=== PATIENT | female | born 1930 | race African-American/Black ===

== ENCOUNTER 2016-06-04 05:00 | Emergency (ER) | payer MEDICARE, MEDICAID ==
[~2016-06-04] VITALS: Ht 149.9 cm; Wt 61.2 kg
[~2016-06-04 05:00] MED LIST: HYDR-1421
[2016-06-04 06:05] LABS: Basophils # (auto) 0.1 uL; Basophils % (auto) 0.5 % (0.0-2.0); Eosinophils # (auto) 0.2 uL; Hematocrit 40.8 % (36.0-46.0); Hemoglobin 12.8 g/dL (12.2-16.2); Lymphocytes # (auto) 2.8 uL; Lymphocytes % (auto) 28.8 % (10.0-50.0); Mean Corpuscular Hemoglobin 30.5 pg (28.0-32.0); Mean Corpuscular Hgb Conc. 31.4 g/dL (32.0-36.0); Mean Corpuscular Volume 97.4 fL (80.0-100.0); Mean Platelet Volume 9.4 fL (7.4-10.4); Monocytes # (auto) 0.7 uL; Neutrophils % (auto) 61.7 % (37.0-80.0); Platelet Count (auto) 277 10^3/uL (140-450); Red Cell Distribution Width 14.6 % (11.6-16.0); White Blood Cell 9.7 10^3/uL (4.4-10.8)
[2016-06-04 06:15] LABS: INR 1.01 (0.9-1.15); Partial Thromboplastin Time 26.4 sec (22.64-33.71); Prothrombin Time 10.4 sec (9.37-12.3)
[2016-06-04 06:38] LABS: Chloride 110 mmol/L (98-107); Potassium 3.8 mmol/L (3.5-5.1); Sodium 142 mmol/L (136-145)
[2016-06-04 06:42] LABS: Albumin 3.4 g/dL (3.4-5.0); Anion Gap 9 (5-15); Aspartate Aminotransferase 32 U/L (15-37); BUN/Creatinine Ratio 15.8; Blood Urea Nitrogen 12 mg/dL (7-18); Calcium 8.9 mg/dL (8.5-10.1); Carbon Dioxide 23 mmol/L (21-32); GFR African American 93 mL/min; GFR Non-African American 77 mL/min; Glucose 104 mg/dL (74-106)
[2016-06-04 06:47] LABS: Alkaline Phosphatase 107 U/L (45-117); Bilirubin, Total 0.3 mg/dL (0.2-1.0)
[2016-06-04 06:48] LABS: B-Type Natriuretic Peptide 109.51 pg/mL (0-100); Temperature: 21.9 C (20.0-25.0)
[2016-06-04] MEDS ORDERED: traMADol HCL 50 MG TAB PO ONE (12:15)
[2016-06-04 13:35] VITALS: BP 156/67
== END 2016-06-04 13:57 | disposition home or self-care (01) ==
LOC: ER 05:04
DX: I10 Essential (primary) hypertension (principal); J44.9 Chronic obstructive pulmonary disease, unspecified; E78.5 Hyperlipidemia, unspecified; M54.32 Sciatica, left side; F17.210 Nicotine dependence, cigarettes, uncomplicated
CPT/HCPCS: 36415; 80053; 83880; 84484; 85025; 85610; 85730; 93005